=== PATIENT | male | born 1975 | race Two or more races ===

== ENCOUNTER 2018-07-12 07:51 | Day surgery (SDC) | payer OTHER | END 2018-07-12 12:10 | disposition home or self-care (01) | LOC: AMB-ENDOS 07:51 | DX: K29.60 Other gastritis without bleeding (principal); K44.9 Diaphragmatic hernia without obstruction or gangrene; K21.9 Gastro-esophageal reflux disease without esophagitis; K64.1 Second degree hemorrhoids ==